=== PATIENT | male | born 1985 | race Caucasian/White ===

== ENCOUNTER → 2017-05-29 14:40 | Outpatient (REF) | payer OTHER, SELFPAY ==
[2017-05-29 19:03] LABS: Basophils # 0.1 K/mm3 (0-0.2); Basophils % 1.1 % (0.1-2.0); Eosinophils # 0.3 K/mm3 (0.0-0.4); Eosinophils % 4.3 % (0.1-12.0); Hematocrit 48.2 % (42.0-52.0); Hemoglobin 15.8 g/dL (14.1-18.0); Lymphocytes # 1.8 K/mm3 (0.7-4.5); Mean Corpuscular HGB Conc 32.7 g/dL (31.8-35.4); Mean Corpuscular Hemoglobin 28.3 pg (27.0-31.2); Mean Corpuscular Volume 86.6 fl (80-94); Mean Platelet Volume 8.8 fl (7.4-10.4); Monocytes # 0.5 K/mm3 (0.1-1.0); Monocytes % 6.5 % (1.7-9.3); Neutrophils # 4.6 K/mm3 (1.8-7.8); Neutrophils % 63.1 % (37.0-80.0); Platelet Count 229 K/mm3 (142-424); Red Blood Count 5.56 M/mm3 (4.60-6.20); Red Cell Distribution Width 12.6 % (11.5-17.5); White Blood Count 7.2 K/mm3 (4.8-10.8)
[2017-05-29 19:08] LABS: Alanine Aminotransferase 100 U/L (12-78); Albumin/Globulin Ratio 1.1 (1.1-1.8); Alkaline Phosphatase 101 U/L (46-116); Aspartate Amino Transferase 51 U/L (15-37); Bilirubin,Total 0.3 mg/dL (0.2-1.0); Blood Urea Nitrogen 16 mg/dL (7-18); Carbon Dioxide 30 mmol/L (21.0-32.0); Chloride 104 mmol/L (98-107); Chol/HDL Ratio 3.6 (1-3.5); Cholesterol 208 mg/dL (140-200); Creatinine,Serum 0.81 mg/dL (0.70-1.30); Estimated Glomerular Filt Rate 110 ml/min (>60); Free T4 (Free Thyroxine) 0.88 ng/dl (0.76-1.46); GFR (African American) 134 ML/MIN (>60); Globulin 3.8 gm/dl (1.3-3.2); Glucose 81 mg/dL (74-106); HDL Cholesterol 57 mg/dL (27-67); LDL Cholesterol 116 mg/dL (0-130); Sodium 143 mmol/L (136-145); Thyroid Stimulating Hormone 1.24 uIU/ml (0.358-3.740); Total Protein,Serum 7.8 gm/dL (6.4-8.2); Triglycerides 173 mg/dL (30-200); VLDL Cholesterol 35 mg/dL (0-40)
[2017-05-29 19:57] LABS: Hemoglobin A1C 5.5 % (0.0-7.0)
== END ==
LOC: LAB 14:40
PROVIDERS: Visit Provider Emergency Medicine
DX: R63.5 Abnormal weight gain (principal)
CPT/HCPCS: 80053; 80061; 83036; 84439; 84443; 85025

== ENCOUNTER → 2017-06-08 10:15 | Outpatient (CLI) | payer OTHER, SELFPAY ==
[2017-06-09 08:22] LABS: Hep A Ab, IgM Negative (Negative); Hepatitis B Core Antibody IgM Negative (Negative); Hepatitis B Surface Antigen Negative (Negative)
[2017-06-09 18:03] LABS: Hepatitis C Antibody <0.1 s/co ratio (0.0-0.9)
== END ==
PROVIDERS: Physician Assistant; Visit Provider Emergency Medicine
DX: R79.89 Other specified abnormal findings of blood chemistry (principal)
CPT/HCPCS: 36415; 80074

== ENCOUNTER → 2018-05-07 09:16 | Outpatient (POV) | payer OTHER, SELFPAY | PROVIDERS: Visit Provider Dermatology | DX: Z00.00 Encounter for general adult medical examination without abnormal findings (principal) ==

== ENCOUNTER → 2019-01-31 10:38 | Outpatient (CLI) | payer OTHER, SELFPAY ==
--- NOTE | 2019-01-31 10:44 | XR_ITS ---
PROCEDURE: XR FOOT WT BEARING RT 3V CLINICAL INDICATION: pain COMPARISON: No exams were available for comparison FINDINGS: No fracture or dislocation. No lytic or blastic change. There is normal mineralization. The joint spaces are well-preserved. No significant degenerative/arthritic changes. No erosive changes evident. Other findings:Borderline pes planus. There is an os trigonum IMPRESSION: Borderline pes planus otherwise negative Dictated by: Vin Hernandez MD 01/31/2019 15:09 Electronically signed by Vin Hernandez MD in [place] 01/31/2019 15:09
--- NOTE | 2019-01-31 10:44 | XR_ITS ---
PROCEDURE: XR FOOT WT BEARING LT 3V CLINICAL INDICATION: pain Narrowing COMPARISON: No exams were available for comparison FINDINGS: No fracture or dislocation. No lytic or blastic change. There is normal mineralization. There are minimal osteoarthritic changes of the 1st metatarsophalangeal joint. A well-circumscribed lucency is present at the base of the 5th metatarsal. This may represent either an old ununited fracture or accessory center of ossification. Please correlate with history. There is mild pes planus. Other findings:None. 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
--- NOTE | 2019-01-31 10:44 | XR_ITS ---
PROCEDURE: XR ANKLE WT BEARING RT MIN 3V CLINICAL INDICATION: pain COMPARISON: No exams were available for comparison FINDINGS: No fracture, dislocation, lytic change, or blastic change evident. No significant degenerative change IMPRESSION: No acute findings. Dictated by: Vin Hernandez MD 01/31/2019 15:09 Electronically signed by Vin Hernandez MD in [facility] 01/31/2019 15:09
--- NOTE | 2019-01-31 10:44 | XR_ITS ---
PROCEDURE: XR ANKLE WT BEARING LT MIN 3V CLINICAL INDICATION: pain COMPARISON: No exams were available for comparison FINDINGS: No fracture, dislocation, lytic change, or blastic change evident. No significant degenerative change. There is an os trigonum IMPRESSION: Negative left ankle Dictated by: Vin Hernandez MD 01/31/2019 15:08 Electronically signed by Vin Hernandez MD in [facility] 01/31/2019 15:08
== END ==
PROVIDERS: PCP Emergency Medicine; Visit Provider Podiatrist
DX: M79.672 Pain in left foot (principal); M79.671 Pain in right foot; M25.572 Pain in left ankle and joints of left foot; M25.571 Pain in right ankle and joints of right foot
CPT/HCPCS: 73610; 73630

== ENCOUNTER 2021-03-09 11:40 | Emergency (ER) | payer OTHER, SELFPAY ==
[2021-03-09] VITALS (12 sets, daily range): BP systolic 98–152; BP diastolic 64–90; PULSE 69–100; RESP 14–22; TEMP 36.6–36.8; O2SAT 93–97; BMI 43.3
--- NOTE | 2021-03-09 11:38 | ECG_ITS ---
APPROVED REPORT Exam: Resting ECG HR:84 bpm ECG Measurements Heart Rate 84 AXES ID 174 P 57 QRSd 98 QRS 33 QT 352 T 63 QTc 415 Conclusion Normal sinus rhythm Incomplete right bundle branch block Borderline ECG Electronically signed by : Prashant Barnes MD 03/11/2021 12:14:02
--- NOTE | 2021-03-09 11:43 | HMH.EDGENADL ---
ED Disposition Clinical Impression: Pneumonia due to COVID-19 virus Disposition: Home, Self-Care Condition on Discharge: Fair Instructions: DI for COVID-19 (Suspected or Confirmed ) Additional Instructions: Return to the emergency department if shortness of breath develops. COVID-19 Isolation: Isolate yourself for a MINIMUM of 10 days from onset of symptoms: What to do: Monitor your symptoms. If you have an emergency warning sign (including trouble breathing), seek emergency medical care immediately. Stay in a separate room from other household members, if possible. Use a separate bathroom, if possible. Avoid contact with other members of the household and pets. Don?t share personal household items, like cups, towels, and utensils. Wear a mask when around other people if able. You can be around others AFTER: 10 days since symptoms first appeared AND 24 hours with no fever without the use of fever-reducing medications AND Other symptoms of COVID-19 are improving Referrals: Provider,Referral, [Referring] - - Critical Care Critical Care Time: No Attestation: On , the high probability of a clinically significant, sudden or life threatening deterioration of the following system(s) required my full and direct attention, intervention and personal management. The time I documented below is in addition to time spent performing reported procedures but includes the following listed in this critical care notation. Medical Decision Making - Mike Inquiry Pt receiving controlled substance: No Vital Signs: 03/09/21 11:54 Temperature 98.2 F Temperature Source Oral Pulse Rate [Left Radial] 87 Respiratory Rate 20 Blood Pressure [Right Arm] 152/90 H Blood Pressure Mean [Right Arm] 110 Blood Pressure Source [Right Arm] Automatic Cuff Blood Pressure Position [Right Arm] Sitting 02 Sat by Pulse Oximetry 97 Oxygen Delivery Method Room Air - Lab Data Lab Results 03/09/21 11:40: WBC 6.2, RBC 5.80, Hgb 17.3, Hct 51.3, MCV 88.5, MCH 29.8, MCHC 33.6, RDW 13.0, Plt Count 229, MPV 9.2, Neut % (Auto) 62.4, Lymph % (Auto) 26.1, Sterling % (Auto) 9.0, Eos % (Auto) 1.5, Baso % (Auto) 1.1, Neut # (Auto) 3.9, Lymph # (Auto) 1.6, Sterling # (Auto) 0.6, Eos # (Auto) 0.1, Baso # (Auto) 0.1 03/09/21 11:40: Sodium 141, Potassium 3.9, Chloride 106, Carbon Dioxide 28, Anion Gap 10.9, BUN 14, Creatinine 0.80, Estimated Creat Clear 124, Estimated GFR 109, Est GFR ( Amer) 132, Glucose 83, Calcium 9.1, Troponin I < 0.01 03/09/21 11:40: SARS-CoV-2 (PCR) Detected A, Influenza A Untype (PCR) Not detected, Influenza Type B (PCR) Not detected 03/09/21 11:40: D-Dimer 1.11 H Result diagrams: 03/09/21 11:40 03/09/21 11:40 Orders (Tests/Meds): ED MEDICATIONS Generic Name Dose Route Start Last Admin Trade Name Freq PRN Reason Stop Dose Admin Diphenhydramine HCl 25 mg 03/09/21 14:00 Diphenhydramine 50mg/Ml Vial IV 03/09/21 16:00 ONCE PRN INFUSION REACTION Hydrocortisone Sodium Succinate 100 mg 03/09/21 14:00 Hydrocortisone Sod Succinate 100mg Vial IV 03/09/21 16:00 ONCE PRN INFUSION REACTION Sodium Chloride 1,000 mls @ 100 mls/hr 03/09/21 14:00 Sod Chlor 0.9% 1000ml Bag IV 03/09/21 16:00 .Q10H PRN INFUSION REACTION Casirivimab/Imdevimab 10 ml/ 110 mls @ 220 mls/hr 03/09/21 14:00 Sodium Chloride IV 03/09/21 14:29 ONCE ONE Loratadine 10 mg 03/09/21 14:00 Loratadine 10mg Tablet PO 03/09/21 16:00 ONCE PRN INFUSION REACTION Discontinued Medications Generic Name Dose Route Start Last Admin Trade Name Freq PRN Reason Stop Dose Admin Iopamidol 70 ml 03/09/21 12:42 03/09/21 12:43 Iopamidol-370 (76%);100ml Bottle IV 03/09/21 12:43 70 ml ONCE ONE Administration Sodium Chloride 40 ml 03/09/21 12:42 03/09/21 12:43 0.9 % Sodium Chloride 50 Ml Vial IV 03/09/21 12:43 40 ml ONCE ONE Administration Sodium Chloride 10 ml 03/09
--- NOTE | 2021-03-09 11:50 | XR_ITS ---
PROCEDURE: XR CHEST 2V CLINICAL HISTORY: cough/chest pain COMPARISON: No exams were available for comparison FINDINGS: The cardiomediastinal silhouette and pulmonary vascularity are within normal limits. There is some increased density in the right CP angle felt to be related to summation artifact. On the lateral view however there is a 2 cm area of increased density overlying the T7 vertebral body posteriorly and inferiorly which may be related to a sclerotic lesion of T7. There are mild degenerative changes in the thoracic spine. No previous study is available for comparison.. No acute bony abnormalities. IMPRESSION: Possible sclerotic lesion of T7 versus overlying pulmonary nodule. Consider unenhanced chest CT for further evaluation Dictated by: Vin Hernandez MD 03/09/2021 12:36 Vin Hernandez MD in [place] 03/09/2021 12:36
[2021-03-09 12:03] LABS: Basophils # 0.1 K/mm3 (0-0.2); Basophils % 1.1 % (0.1-2.0); Eosinophils # 0.1 K/mm3 (0.0-0.4); Eosinophils % 1.5 % (0.1-12.0); Hematocrit 51.3 % (42.0-52.0); Hemoglobin 17.3 g/dL (14.1-18.0); Lymphocytes # 1.6 K/mm3 (0.7-4.5); Lymphocytes % 26.1 % (10-50); Mean Corpuscular HGB Conc 33.6 g/dL (31.8-35.4); Mean Corpuscular Hemoglobin 29.8 pg (27.0-31.2); Mean Corpuscular Volume 88.5 fl (80-94); Mean Platelet Volume 9.2 fl (7.4-10.4); Monocytes # 0.6 K/mm3 (0.1-1.0); Neutrophils # 3.9 K/mm3 (1.8-7.8); Neutrophils % 62.4 % (37.0-80.0); Platelet Count 229 K/mm3 (142-424); White Blood Count 6.2 K/mm3 (4.8-10.8)
[2021-03-09 12:08] LABS: Blood Urea Nitrogen 14 mg/dl (9-20); Calcium 9.1 mg/dl (8.4-10.2); Chloride 106 mmol/L (98-107); Creatinine Clearance Estimated 124 mL/min (50-200); Estimated Glomerular Filt Rate 109 ml/min (>60); GFR (African American) 132 ML/MIN (>60); Glucose 83 mg/dl (74-100); Potassium 3.9 mmoL/L (3.5-5.1); Sodium 141 mmol/L (136-145)
[2021-03-09 12:11] LABS: Influenza A, PCR Not Detected (NotDetected); Influenza B, PCR Not Detected (NotDetected)
[2021-03-09 12:13] LABS: D-Dimer 1.11 ug/mL (0.0-0.5)
[2021-03-09 12:21] LABS: Troponin I < 0.01 ng/ml (0.00-0.034)
--- NOTE | 2021-03-09 12:22 | CT_ITS ---
PROCEDURE: CT ANGIO CHEST PE PROTOCOL CLINCIAL INDICATION: cp, elev d-dimer The COMPARISON: CR XR CHEST 2V from 03/09/2021 TECHNIQUE: IV Contrast: 70ML Isovue 370 Axial images obtained with sagittal and coronal reformats. All CT scans at the facility use one or more dose reduction, viz: automated exposure control, ma/kV adjustment per patient size (including targeted exams where dose is matched to indication, i.e. head), or iterative reconstruction technique. FINDINGS: HEART AND MEDIASTINAL STRUCTURES: No evidence of pulmonary embolus, aortic aneurysm, or aortic dissection. There are some mildly prominent mediastinal lymph nodes in the subcarinal region measuring 3 by 1.6 cm. LUNGS AND PLEURAL SPACES: Multifocal bilateral ground-glass opacities are present suspicious for Covid19 pneumonia. That history however is not available for confirmation. In the right lower lobe medially there is a 1.6 x 1.4 cm pulmonary nodular opacity. This is more dense than the other described areas of ground-glass attenuation. This could represent a rounded area of pneumonia or pulmonary nodule. This corresponds to the radiographic abnormality. No effusions. BONY STRUCTURES: Degenerative changes thoracic spine UPPER ABDOMEN: Fatty liver ADDITIONAL FINDINGS: No other significant abnormalities. IMPRESSION: No evidence of pulmonary embolus, aortic aneurysm, or aortic dissection. Multifocal ground-glass opacities in lower lungs bilaterally suggesting atypical pneumonia. Please correlate with clinical parameters. 1.6 cm nodular opacity right lower lobe medially which could represent a rounded area of pneumonia or pulmonary nodule for which follow-up is suggested. There is mild mediastinal adenopathy in the subcarinal region. Dictated by: Vin Hernandez MD 03/09/2021 12:57 Vin Hernandez MD in [place] 03/09/2021 12:57
[2021-03-09 12:35] LABS: Anion Gap 10.9 mEq/L (5-15); Carbon Dioxide 28 mmol/L (22.0-30.0)
[2021-03-09 12:36] LABS: Coronavirus 19, PCR Detected (NotDetected)
== END 2021-03-09 17:00 | disposition home or self-care (01) ==
PROVIDERS: Emergency Provider Emergency Medicine; PCP Emergency Medicine
DX: U07.1 COVID-19 (principal); J12.82 Pneumonia due to coronavirus disease 2019; E78.5 Hyperlipidemia, unspecified; K21.9 Gastro-esophageal reflux disease without esophagitis; J45.909 Unspecified asthma, uncomplicated
CPT/HCPCS: 71046; 71275; 80048; 84484; 85025; 85378; 93005; 96365; 96367; 99283; C9803; Q9967; U0003; U0005

== ENCOUNTER → 2021-08-30 09:25 | Outpatient (CLI) | payer OTHER, SELFPAY ==
--- NOTE | 2021-08-30 09:28 | CT_ITS ---
FINAL REPORT CLINICAL HISTORY: umbillical hernia COMPARISON: CTA chest March 09, 2021 FINDINGS: Axial CT images of the abdomen and pelvis were obtained without intravenous contrast. Coronal reformatted images were also obtained.This study was performed with techniques to keep radiation doses as low as reasonably achievable (ALARA). Individualized dose reduction techniques using automated exposure control or adjustment of mA and/or kV according to the patient's size were employed. Abdomen: There is a 17 mm lobular nodule in the right lower lobe stable in size and appearance. There are small calcifications within the nodule. This is nonspecific. There is no evidence of renal stone or hydronephrosis. There is mild fatty infiltration of the liver. The spleen and pancreas have an unremarkable, unenhanced appearance. There is a fat containing umbilical hernia. The hernia orifice measures 18 mm transverse and the hernia sac measures 27 mm transverse. There is stranding of the fat within the hernia and just deep to it. Pelvis: Images of the pelvis reveal no evidence of ureteral dilation or ureteral stone. The appendix is normal. There are small bilateral inguinal hernias containing fat. IMPRESSION: Fat containing umbilical hernia with stranding of the of the fat within the hernia and just deep to it that may be inflammatory or edema. Stable , nonspecific 17 mm right lower lobe nodule. This could be further evaluated with additional follow-up CT in 6 months. Reviewed, Interpreted and Dictated by Rahul Baker III, MD Transcribed by Filemon Eubanks Authenticated by Rahul Baker III, MD on 08/30/2021 11:12:12 AM [facility]
== END ==
PROVIDERS: PCP Nurse Practitioner Family; Visit Provider Nurse Practitioner Family
DX: K42.9 Umbilical hernia without obstruction or gangrene (principal)
CPT/HCPCS: 74176

== ENCOUNTER → 2021-09-20 07:50 | Outpatient (CLI) | payer OTHER, SELFPAY ==
[2021-09-20 07:58] LABS: MANUAL DIFFERENTIAL MANUAL DIFFERENTIAL (MANUAL DIFF); Microscopic, Urine URINE MICROSCOPIC (MICROSCOPIC)
[2021-09-20 08:08] LABS: Appearance,Urine CLEAR (Clear); Bilirubin,Urine Negative (Negative); Blood, Urine Negative (Negative); Color,Urine YELLOW (Yellow); Glucose,Urine (UA) Negative (Negative); Ketones,Urine Negative (Negative); Leukocyte Esterase,Urine Negative (Negative); Nitrate,Urine Negative (Negative); Protein,Urine Negative (Negative); Specific Gravity, Urine >= 1.030 (1.005-1.030); Urobilinogen,Urine 0.2 EU/dl (0.2)
[2021-09-20 08:13] LABS: Basophils # 0.1 K/mm3 (0-0.2); Basophils % 1.8 % (0.1-2.0); Eosinophils # 0.3 K/mm3 (0.0-0.4); Eosinophils % 4.1 % (0.1-12.0); Hematocrit 50.7 % (42.0-52.0); Hemoglobin 17.3 g/dL (14.1-18.0); Lymphocytes # 2.5 K/mm3 (0.7-4.5); Lymphocytes % 33.8 % (10-50); Mean Corpuscular Hemoglobin 29.6 pg (27.0-31.2); Mean Corpuscular Volume 86.9 fl (80-94); Mean Platelet Volume 8.5 fl (7.4-10.4); Monocytes # 0.6 K/mm3 (0.1-1.0); Monocytes % 7.4 % (1.7-9.3); Neutrophils # 3.9 K/mm3 (1.8-7.8); Neutrophils % 52.8 % (37.0-80.0); Platelet Count 205 K/mm3 (142-424); Red Blood Count 5.84 M/mm3 (4.60-6.20); Red Cell Distribution Width 13.4 % (11.5-17.5); White Blood Count 7.4 K/mm3 (4.8-10.8)
[2021-09-20 08:19] LABS: Bacteria,Urine Trace /lpf; RBC,Urine Occasional #/hpf (0-3); Squamous Epithelial Cell,Urine Occasional #/hpf (0-5); WBC,Urine Occasional #/hpf (0-3)
[2021-09-20 08:37] LABS: Eosinophils % 3 % (0-3); Lymphocytes % 42 % (10-50); Monocytes % 4 % (2-9); Neutrophils % 51 % (42-76); Total Cells Counted 100
[2021-09-20 08:39] LABS: Platelet Estimate Normal; Spherocytes 2+
[2021-09-20 08:40] LABS: Burr Cells 1+
[2021-09-20 09:38] LABS: Chloride 103 mmol/L (98-107); Potassium 4.6 mmoL/L (3.5-5.1); Sodium 140 mmol/L (136-145)
[2021-09-20 09:41] LABS: Anion Gap 11.6 mEq/L (5-15); Blood Urea Nitrogen 14 mg/dl (9-20); Calcium 9.5 mg/dl (8.4-10.2); Carbon Dioxide 30 mmol/L (22.0-30.0); Estimated Glomerular Filt Rate 95 ml/min (>60); GFR (African American) 115 ML/MIN (>60); Glucose 101 mg/dl (74-100)
== END ==
PROVIDERS: PCP Emergency Medicine; Visit Provider Surgery
DX: Z01.812 Encounter for preprocedural laboratory examination (principal); Z20.822 Contact with and (suspected) exposure to COVID-19; K42.9 Umbilical hernia without obstruction or gangrene
CPT/HCPCS: 36415; 80048; 81001; 85007; 85014; 85018; 85048; 85049; C9803; U0003; U0005

== ENCOUNTER 2021-09-22 06:02 | Day surgery (SDC) | payer OTHER, SELFPAY ==
[2021-09-20 10:13] VITALS: BMI 43.3
[2021-09-22] VITALS (9 sets, daily range): BP systolic 121–146; BP diastolic 69–102; PULSE 66–98; RESP 12–18; TEMP 36.2–36.4; O2SAT 94–98
--- NOTE | 2021-09-22 08:02 | HMH.ANESCL ---
[facility] Anesthesia Checklist - Patient Identification Patient Identification: Arm Band - Structural Data Admitted From: Home Planned Operative Procedure/s: Umbilical hernia repair Consent for Planned Operative Procedure(s) Verified: Yes - NPO Status Verified Time NPO: 00:00 - Additional verifications Anesthesia Reactions: No Hx Blood Transfusions: No Blood Transfusion Reaction: No - Airway Assessment C-Spine Mobility Assessed: Yes TMJ Mobility Assessed: Yes Dentition: Good Dentition - Neurological Assessment Level of Consciousness: Awake Hx Seizures: No Numbness or tingling in extremities: No - Anesthesia Plan Anesthesia Risk discussed: Yes Anesthesia Plan: Verified ASA Class: II Anesthesia Type: General [facility] History I have reviewed the patient's past medical history: Yes Medical History: Reports:: Asthma, Gastroesophageal Reflux Disease(GERD) Denies:: Cancer, Diabetes Mellitus Type 1, Diabetes Mellitus Type 2, Internal Pacemaker, MRSA, Seizures *Have you ever received a pneumonia vaccine?: No *Have you received a flu vaccine this season?: No Other Medical History: Denies: Blood Transfusion Reaction Anesthesia experience/problems:: None Other Surgeries: Yes: Other. No: Pacemaker Amputation: No Fractures: Yes - *Social History Last grade of school completed: High school graduate Smoking Status: Current every day smoker Tobacco Type: cigarettes, cigars # Packs/Day (cigarettes): 1 Alcohol Intake: current Alcohol Intake Frequency:: holidays/special occasions only Substance Use Type: denies use *Occupational Status:: employed Housing: house Household Members: family *Travel in the last 8 weeks: None Family Hx:: Diabetes, Heart Attack, Hypertension, Stroke
--- NOTE | 2021-09-22 08:14 | P.OP_ITS ---
Date of procedure: 09/22/21 Pre-op Diagnosis:: Umbilical hernia with chronically-incarcerated preperitoneal fat versus omentum Post-op Diagnosis:: Umbilical hernia with chronically-incarcerated omentum Procedure performed:: Open umbilical hernia repair (primary repair without mesh) Surgeon:: Wesley Varela MD Anesthesia: MAC Estimated blood loss (mL): 10 Operative findings:: 1 cm defect Chronically-incarcerated omentum with projection to the skin margin Operative note:: After informed consent was obtained the patient was taken to the operating room was placed in the supine position. General anesthesia with laryngeal mask airway was achieved. His abdomen was prepped and draped in a sterile fashion. After infiltration local anesthetic a curvilinear infraumbilical incision was made. The deep subcutaneous tissue was dissected with a combination of scalpel, electrocautery, and blunt dissection. Chronically-incarcerated omentum project ing to the underlying skin margin was encountered. This was carefully dissected free to include a small margin of skin that was incorporated into the hernia sac. Dissection along the fascial margin was completed. A 1 cm defect was noted. The omentum was carefully returned to the abdominal cavity (with the exception of a small transected margin). 0 Ethibond was then used to close the defect primarily. The umbilical stump was reapproximated with 2-0 Vicryl. Skin was then closed with 4-0 Monocryl in a mattress fashion to facilitate hemostasis. Dressings were applied and the patient was transferred to recovery in stable condition. Condition: stable Disposition: PACU Specimens:: None Complications:: no immediate
--- NOTE | 2021-09-22 08:23 | HMH.ANESI ---
[facility] Anesthesia Record Part I Intake, IV Amount: 700 Estimated blood loss (mL): 5 Urine output (mL): 0 Blood Pressure: 142/102 SaO2: 94 Pulse Rate: 84 Respiratory Rate: 12 Temperature: 97.2 F Patient is:: Drowsy Stable to PACU at:: 08:20
--- NOTE | 2021-09-23 07:45 | P.PN_ITS ---
[facility] Anesthesia Record Part II Discharge Time: 08:50 Destination: Home PACU nurse assessment reviewed?: Yes Patient Condition:: Good Anesthesia Complications:: None Swallowing reflex intact?: Yes Cyanosis?: No Blood Pressure: 136/84 Pulse Rate: 72 Temperature: 97.5 F Mental Status: Alert & Oriented Pain level:: 2 Nausea and/or vomitting:: None Intake, IV Amount: 0
[2021-09-23 07:46] VITALS: BP 136/84; PULSE 72; TEMP 36.4
[2021-09-23 09:30] VITALS: BP 142/82; PULSE 73; RESP 16; TEMP 36.4; O2SAT 94
== END 2021-09-22 09:30 ==
LOC: OR 06:03
PROVIDERS: PCP Nurse Practitioner Family; Visit Provider Surgery
PROC: (CPT 49587; principal; 2021-09-22 07:30)
DX: K42.0 Umbilical hernia with obstruction, without gangrene (principal); K21.9 Gastro-esophageal reflux disease without esophagitis
CPT/HCPCS: 49587; 96374; J2405; J2710

== ENCOUNTER → 2022-01-31 11:30 | Outpatient (CLI) | payer OTHER, SELFPAY ==
[2022-01-31 13:09] LABS: Coronavirus 19, PCR Not Detected (NotDetected); Influenza A, PCR Not Detected (NotDetected); Influenza B, PCR Not Detected (NotDetected)
== END ==
PROVIDERS: PCP Student in an Organized Health Care Education/Training Program; Visit Provider Student in an Organized Health Care Education/Training Program
DX: J32.9 Chronic sinusitis, unspecified (principal); Z20.822 Contact with and (suspected) exposure to COVID-19
CPT/HCPCS: C9803; U0003; U0005

== ENCOUNTER 2022-10-29 09:33 | Emergency (ER) | payer OTHER, SELFPAY ==
[2022-10-29 09:34] VITALS: BP 126/76; PULSE 62; RESP 18; TEMP 36.9; O2SAT 97; BMI 41.0
--- NOTE | 2022-10-29 09:36 | EXP.UTC ---
Discharge Plan Disposition Patient Disposition: Home, Self-Care Condition: Good Prescriptions Prescriptions: New benzonatate [benzonatate] 100 mg capsule 100 mg PO TIDP PRN (Reason: Cough) Qty: 30 0RF methylprednisolone 4 mg Tablets,Dose Pack 4 mg PO DIRECTED Qty: 21 0RF amoxicillin-pot clavulanate 875-125 mg Tablet 1 tab PO Q12H Qty: 20 0RF guaifenesin [Mucinex] 600 mg tablet extended release 12hr 600 - 1,200 mg PO BIDP PRN (Reason: Congestion) Qty: 30 0RF No Action omeprazole 40 mg capsule,delayed release(DR/EC) 40 mg PO DAILY Qty: 90 3RF ogumaygqxjjmnaa-gqbjrwsom-BO [Bromfed DM] 2-30-10 mg/5 mL syrup 10 ml PO Q4-6H PRN (Reason: cough) 7 Days Qty: 200 0RF amoxicillin-pot clavulanate 875-125 mg tablet 1 tab PO BID 7 Days Qty: 14 0RF Referrals Follow up/Referrals: Shira Smith PA [Primary Care Provider] - See instructions Activity Restrictions/Add. Instructions Additional Instructions/Restrictions: Drink plenty of fluids. Take tylenol or ibuprofen for pain or fever. Take the medications as directed. Follow up with your regular doctor. GO TO THE ER FOR ANY WORSENING SYMPTOMS Throw your tooth brush away and get a new one. Quarantine until you know the results of your covid-19 test. Notify your school or workplace of your results and follow their instructions regarding return to work/school. Clinical Impressions Clinical Impression: Acute bronchitis Instructions Patient Instructions: Acute Bronchitis, DI for Acute Bronchitis Discharge ED Provider: Osmin Cruz [facility] General Stated complaint: cough Time Seen by Provider: 10/29/22 09:37 History of Present Illness Provider Complaint: He states that for the past 5 days he has had chest and sinus congestion. He has been coughing up yellowish sputum. Related Data Previous Rx's Medication Instructions Recorded amoxicillin 875 mg-potassium 1 tab PO BID 7 days #14 tabs 01/31/22 clavulanate 125 mg tablet owkuzgmnawctmmp-vccgxyixxgrzbbj-LG 10 ml PO Q4-6H PRN cough 7 days 01/31/22 2 mg-30 mg-10 mg/5 mL oral syrup #200 mL (Bromfed DM) omeprazole 40 mg capsule,delayed 40 mg PO DAILY gerd #90 caps 01/31/22 release amoxicillin 875 mg-potassium 1 tab PO Q12H #20 tabs 10/29/22 clavulanate 125 mg tablet benzonatate 100 mg capsule 100 mg PO TIDP PRN Cough #30 caps 10/29/22 guaifenesin 600 mg tablet, 600 - 1,200 mg PO BIDP PRN 10/29/22 extended release 12 hr (Mucinex) Congestion #30 tabs methylprednisolone 4 mg tablets in 4 mg PO DIRECTED #21 tabs 10/29/22 a dose pack Allergies Allergy/AdvReac Type Severity Reaction Status Date / Time acetaminophen [From Percocet] Allergy Mild Rash Verified 01/31/22 11:10 erythromycin base Allergy Mild Rash Verified 01/31/22 11:10 oxycodone [From Percocet] Allergy Mild Rash Verified 01/31/22 11:10 PFS PFS Disclaimer: The information contained in this section may have been updated after the patient was seen, as this information can be updated by other users. Medical History Hyperlipidemia (~05/30/17) Surgical History Hx of umbilical hernia repair Social History Smoking Status: Current every day smoker tobacco type: cigarettes packs per day: 1 and cigars second hand exposure: No alcohol intake: current substance use type: denies use current occupational status: employed Travel in the last 8 weeks: None household members: family housing: house current occupation: self current occupational exposures/hazards: No caffeine: Yes ROS Obtained: Yes All systems reviewed & no additional complaints except as documented Constitutional Constitutional: Reports poor appetite Eyes Eyes: Reports system reviewed and no additional complaints, except as documented ENT Ears,
[2022-10-29 10:16] VITALS: BP 126/76; PULSE 62; RESP 18; TEMP 36.9; O2SAT 97
== END 2022-10-29 10:17 | disposition home or self-care (01) ==
PROVIDERS: Emergency Provider Nurse Practitioner Family; PCP Physician Assistant
DX: J20.9 Acute bronchitis, unspecified (principal); F17.210 Nicotine dependence, cigarettes, uncomplicated; E78.5 Hyperlipidemia, unspecified
CPT/HCPCS: 99204; 99212; G0463

== ENCOUNTER 2023-06-08 08:05 | Outpatient (CLI) | payer OTHER, SELFPAY ==
--- NOTE | 2023-06-08 08:15 | XR_ITS ---
FINAL REPORT CLINICAL HISTORY: neck/shoulder/back pain FINDINGS: RIGHT SHOULDER Three views demonstrate no acute fracture or dislocation. The visualized joint spaces are normally aligned. The soft tissues are unremarkable. IMPRESSION: No acute process. Reviewed, Interpreted and Dictated by Vignesh Herndon MD Transcribed by Cristal Daniel Authenticated and [facility]
--- NOTE | 2023-06-08 08:15 | XR_ITS ---
FINAL REPORT CLINICAL HISTORY: Neck/shoulder/back pain FINDINGS: CERVICAL SPINE SERIES Three views demonstrate no acute fracture. The disc spaces are well preserved. The vertebral body demonstrates normal height.. There is reversal of cervical lordosis. Alignment is otherwise normal. IMPRESSION: No acute process. Reviewed, Interpreted and Dictated by Vignesh Herndon MD Transcribed by Cristal Daniel Authenticated and [facility]
== END 2023-06-08 23:59 ==
LOC: RAD 08:07
PROVIDERS: PCP Physician Assistant; Visit Provider Internal Medicine
DX: M25.511 Pain in right shoulder (principal); M54.2 Cervicalgia
CPT/HCPCS: 72040; 73030

== ENCOUNTER 2023-07-26 15:10 | Outpatient (CLI) | payer OTHER, SELFPAY ==
--- NOTE | 2023-07-26 15:14 | MR_ITS ---
FINAL REPORT CLINICAL HISTORY: Cervical Spine Pain FINDINGS: Multiplanar MR imaging of the cervical spine was performed without contrast. There is motion artifact on many sequences. On the sagittal T2-weighted images, disc degeneration is seen throughout. There is no evidence of fracture. The vertebral alignment is normal. The cervical spinal cord has an unremarkable appearance without evidence of mass, edema or syrinx. The cervicomedullary junction is normal. C2-3: Annular disc bulge with uncovertebral osteophytes. There is mild right neuroforaminal narrowing. C3-4: Left foraminal disc protrusion with partially covering osteophyte. There is moderate left neuroforaminal narrowing. There is mild central canal stenosis with AP diameter of the thecal sac measuring 9 mm. C4-5: Annular disc bulge with uncovertebral osteophytes. There is moderate bilateral neuroforaminal narrowing. C5-6: Disc osteophyte complex with right foraminal extruded disc. There is severe right neuroforaminal narrowing. There is mild central canal stenosis with AP diameter thecal sac measuring 9 mm. C6-7: Disc osteophyte complex with severe right and moderate left neuroforaminal narrowing. C7-T1: Uncovertebral osteophytes with mild right neuroforaminal narrowing. IMPRESSION: Multilevel degenerative disc disease with mild central canal stenosis at C3-4 and C5-6. Reviewed, Interpreted and Dictated by Rahul Baker III, MD Transcribed by Cristal Daniel Authenticated and [facility]
--- NOTE | 2023-07-26 15:14 | MR_ITS ---
FINAL REPORT CLINICAL HISTORY: Rt Shoulder Pain FINDINGS: Multiplanar MR imaging of the right shoulder was performed without contrast.There is motion artifact on many sequences. There is an intrasubstance tear at the distal infraspinatus tendon measuring approximately 50%. Supraspinatus tendon is intact. There is mild AC joint arthrosis. A small amount of fluid is seen in the subacromial/subdeltoid bursa. The glenoid labrum is intact. The long head of the biceps tendon is intact. A small glenohumeral joint effusion is seen. There is no evidence of fracture or dislocation. The musculature is intact. There is no evidence of soft tissue mass. IMPRESSION: Intrasubstance tear of the distal infraspinatus tendon measuring approximately 50%. Mild AC joint arthrosis with subacromial/subdeltoid bursitis. Small glenohumeral joint effusion. Reviewed, Interpreted and Dictated by Rahul Baker III, MD Transcribed by Cristal Daniel Authenticated and [facility]
== END 2023-07-26 23:59 | disposition home or self-care (01) ==
LOC: RAD 15:10
PROVIDERS: PCP Physician Assistant; Visit Provider Orthopaedic Surgery
DX: M54.2 Cervicalgia (principal); M25.511 Pain in right shoulder
CPT/HCPCS: 72141; 73221; 76376

== ENCOUNTER 2025-03-25 07:33 | Day surgery (SDC) | payer OTHER, SELFPAY ==
--- NOTE | 2025-03-17 12:08 | EXP.HP ---
History of Present Illness *Admission Date: 03/25/25 *History of present illness: Mr. Berger is a 39-year-old gentleman who is here for diagnostic colonoscopy. He has struggled with bright red rectal bleeding and some anorectal pain for years. He also has bowel irregularity with alternating constipation and diarrhea. The constipation is worse. He is not on any fiber regimen. He was told to take Metamucil but has been reluctant to do this. He has had an umbilical hernia repair (Wesley Varela M.D.). He does have a lot of gassiness and bloating. He does have infrequent lower abdominal discomfort and pain. He reports no weight loss. He does have obstipation with incomplete defecation and reports longer periods of time on the commode and excessive wiping. He does feel 1 hemorrhoid tag. He feels the blood is coming from the crevice. He reports no weight loss or family history of colon cancer. He was recently placed on metformin because of his prediabetes. He has never had a colonoscopy. The examination is deemed medically necessary for diagnostic colonoscopy. The patient has been seen, interviewed and examined prior to the procedure by both myself and the anesthesia provider. [facility] Disclaimer: The information contained in this section may have been updated after the patient was seen, as this information can be updated by other users. Medical History Sinusitis Hyperlipidemia (~05/30/17) Surgical History Hx of umbilical hernia repair Family History (Updated 03/25/25 @ 08:06 by Judy Paulson RN) Other No significant family history Social History (Updated 03/25/25 @ 08:04 by Judy Paulson RN) Smoking Status: Current every day smoker tobacco type: cigarettes packs per day: 1 and cigars second hand exposure: No alcohol intake: current alcohol intake frequency: holidays/special occasions only substance use type: denies use current occupational status: employed Travel in the last 8 weeks?: None household members: family housing: house current occupation: self current occupational exposures/hazards: No caffeine: Yes Have you lived/traveled outside [place] in past 30 days?: No Contact w/someone who lives/traveled outside US past 30 days?: No Exposure to someone with infectious disease in past 14 days?: No Do you have a fever (greater than 100.4 F or 38 C)?: No Have you tested positive for COVID-19?: No Exposed to someone with COVID-19 in past 14 days?: No Do you have a sore throat?: No Do you have a cough?: No Do you have any weakness?: No Are you experiencing any nausea/vomitting?: No Do you have any diarrhea?: No Are you experiencing any unusual bleeding?: No Do you have any muscle aches/pain?: No Do you have any abdominal pain?: No Are you experiencing loss of taste or smell?: No Other Medical History Have you received the Flu Vaccine for this season: No Have you received the Pneumonia Vaccine: No Review of Systems Review of Systems Review of systems (narrative): Negative *Cardiovascular Comments: Negative *Gastrointestinal Comments: Negative *Genitourinary Comments: Negative *Musculoskeletal Comments: Negative *Neurologic Comments: Negative Meds Home Medications and Allergies Home Medications ?Medication ?Instructions ?Recorded ?Confirmed ?Type omeprazole 40 mg capsule,delayed 40 mg PO DAILY gerd #90 caps 02/08/23 03/25/25 Rx release albuterol sulfate 90 mcg/actuation 2 puff inhalation Q6H PRN 12/01/24 03/25/25 Rx aerosol inhaler shortness of breath or wheezing #8.5 grams aspirin 81 mg tablet 81 mg PO DAILY 01/13/25 03/25/25 History metformin 500 mg tablet 500 mg PO DAILY 01/13/25 03/25/25 History nitroglycerin 0.4 % (w/w) rectal 1 inch HI BID #30 grams 01/13/25 03/25/25 Rx ointment sodium,potassium,mag sulfates 17.5 See Rx Instructions PO .COMPLEX 03/05/25 03/25/25 Rx gram-3.13 gram-1.6 gram oral soln #354 mL (Suprep Bowel Prep Kit) New Prescriptions to Start Prescriptions: Allergies Allergy/AdvReac Type Severity Reaction Status Date / Time acetaminophen (From Percocet) Allergy Mild Rash Verified 03/25/25 07:59 erythromycin base Allergy Mild Rash Verified 03/25/25 07:59 oxycodone (From Percocet) Allergy Mild Rash Verified 03/25/25 07:59 Exam *Routine HEENT Exam Head: Present normocephalic Eye: Present EOMI and PERRL ENT: Present mucous membranes moist *Routine Neck Exam Neck: Present supple *Routine Respiratory Exam Respiratory: Present CTA bilaterally *Routine Cardiovascular Exam Cardiovascular: Present RRR *Routine Abdominal Exam Abdominal: Present soft and normoactive bowel sounds; Absent tenderness *Routine Rectal Exam Rectal:: deferred *Routine Genitalia Exam Genitalia:: deferred *Routine Extremities Exam Extremities: Absent cyanosis, clubbing or edema *Routine Skin Exam Skin: Present warm; Absent rash *Routine Neurological Exam Neurological: Present alert and oriented X3 Assessment and Plan *Assessment and plan (1) Rectal bleeding: Status: Acute Category: Medical Code(s): K62.5 - Hemorrhage of anus and rectum (2) Anorectal pain: Status: Acute Category: Medical Code(s): K62.89 - Other specified diseases of anus and rectum (3) Chronic anal fissure: Status: Acute Category: Medical Code(s): K60.1 - Chronic anal fissure (4) Hemorrhoids: Status: Acute Category: Medical Code(s): K64.9 - Unspecified hemorrhoids (5) Irritable bowel syndrome with mixed bowel habits: Status: Acute Category: Medical Code(s): K58.2 - Mixed irritable bowel syndrome (6) Gassiness: Status: Acute Category: Medical Code(s): R14.0 - Abdominal distension (gaseous) (7) Alternating constipation and diarrhea: Status: Acute Category: Medical Code(s): R19.8 - Other specified symptoms and signs involving the digestive system and abdomen (8) Intermittent lower abdominal pain: Status: Acute Category: Medical Code(s): R10.30 - Lower abdominal pain, unspecified Plan A/P: 1. Anorectal bleeding and anorectal pain with mixed IBS, gassiness and infrequent lower abdominal discomfort and pain is the preprocedural diagnosis. The patient has never had a colonoscopy. The patient will be anesthetized/sedated using MAC sedation. The patient has been seen and examined. Cardiac and lung assessment prior to the examination is stable. Proceed with planned diagnostic colonoscopy.
--- NOTE | 2025-03-25 06:16 | HMH.PROCNOTE ---
[facility] Procedure Note Date: 03/25/25 Time: 08:54 Procedure Note:: Colonoscopy Procedure Report: Colonoscopy with cold snare polypectomy, snare cautery and Endo Clip placement Endoscopist: Niko Raza II, MD Referring physician: Prashant Barnes M.D. Date of Procedure: March 25, 2025 Equipment: Olympus [id number] adult colonoscope Sedation: MAC sedation Indication: Mr. Berger is a 39-year-old gentleman who is here for diagnostic colonoscopy. He has struggled with bright red rectal bleeding and anorectal pain for years. He also has bowel irregularity with alternating constipation and diarrhea with constipation predominant IBS symptoms. He was initially reluctant to take fiber but he has initiated a fiber bowel regimen (combined MiraLAX plus Metamucil mixed together every morning). This has resulted in complete resolution of his anal fissure with resolution of the bleeding and anorectal pain. He has had less gassiness and bloating. He reports no abdominal pain and previously had some left lower pain. He reports no weight loss or family history of colon cancer. He has had an umbilical hernia repair (Wesley Varela M.D.). He was recently placed on metformin because of his prediabetes. He has never had a colonoscopy. The examination is deemed medically necessary for diagnostic colonoscopy. Procedure: Prior to the procedure, a history and physical exam was performed, and patient's medications and allergies were reviewed. The risks, benefits and alternatives of the sedation and procedure were discussed with the patient. All questions were answered and informed consent was obtained. The patient was brought to the procedure room. Patient identification and proposed procedure were verified by the physician and the nurse. The patient was placed in a left lateral decubitus position and the scope was passed under direct vision. Throughout the procedure, the patient's blood pressure, pulse, and oxygen saturations were monitored continuously. The colonoscopy was accomplished without difficulty. The patient tolerated the procedure well. Findings: On digital rectal examination there was normal to slightly increased rectal tone. There was a healing posterior midline anal fissure with an internal associated anal papilla. There was some mild hemorrhoidal prolapse. The colonoscope was introduced through the anal canal to the rectum and advanced to the cecum. The ileocecal valve and appendiceal orifice were identified. The scope was advanced a short distance into the ileum which appeared grossly normal. The scope was then withdrawn into the colon. There were 5 colon polyps (descending x 2 (3 and 5 mm), sigmoid x 2 (8 and 10 mm) and rectosigmoid x 1 (13 mm)). The smaller polyps were removed via cold snare polypectomy. The larger 10 and 13 mm polyps were removed via snare cautery and were pedunculated polyps. 3 endoclips were placed over the larger polypectomy sites (8, 10 and 13 mm polypectomy sites) to provide closure and hemostasis. The remaining cecum, ascending, transverse, descending, sigmoid and rectum were grossly normal. There were no mucosal abnormalities identified. Upon retroflexion within the rectum there were grade 2-3 internal hemorrhoids. The preparation was excellent throughout with Wever Preparation Score of 9. The cecal time was 15 minutes. Impression: 1. Colonic polyps x 5 2. Posterior midline anal fissure (healing) with associated hypertrophied anal papilla 3. Grade 2 to 3 internal hemorrhoids Plan: I will follow-up the polyp histology and recommend repeat screening/surveillance colonoscopy again in 3 years. I would encourage the fiber bowel regimen (combined MiraLAX plus Metamucil) on a long-term daily and maintenance basis.
[2025-03-25 08:03] VITALS: BP 176/111; PULSE 86; RESP 16; TEMP 36.1; O2SAT 96; BMI 41.0
[2025-03-25] MEDS: LACTATED RINGERS 1000ML 1,000 ML 50 ML IV (08:14)
--- NOTE | 2025-03-25 08:22 | EXP.ANES.CKL ---
[facility] Disclaimer: The information contained in this section may have been updated after the patient was seen, as this information can be updated by other users. Medical History Sinusitis Hyperlipidemia (~05/30/17) Surgical History Hx of umbilical hernia repair Family History (Updated 03/25/25 @ 08:06 by Judy Paulson RN) Other No significant family history Social History (Updated 03/25/25 @ 08:04 by Judy Paulson RN) Smoking Status: Current every day smoker tobacco type: cigarettes packs per day: 1 and cigars second hand exposure: No alcohol intake: current alcohol intake frequency: holidays/special occasions only substance use type: denies use current occupational status: employed Travel in the last 8 weeks?: None household members: family housing: house current occupation: self current occupational exposures/hazards: No caffeine: Yes Have you lived/traveled outside [place] in past 30 days?: No Contact w/someone who lives/traveled outside [place] past 30 days?: No Exposure to someone with infectious disease in past 14 days?: No Do you have a fever (greater than 100.4 F or 38 C)?: No Have you tested positive for COVID-19?: No Exposed to someone with COVID-19 in past 14 days?: No Do you have a sore throat?: No Do you have a cough?: No Do you have any weakness?: No Are you experiencing any nausea/vomitting?: No Do you have any diarrhea?: No Are you experiencing any unusual bleeding?: No Do you have any muscle aches/pain?: No Do you have any abdominal pain?: No Are you experiencing loss of taste or smell?: No [facility] Anesthesia Checklist Patient Identification Patient Identification: Arm Band Structural Data Admitted From: Home Planned Operative Procedure/s: Colonoscopy Consent for Planned Operative Procedure(s) Verified: Yes Verified Documents: Surgical Consent and History and Physical NPO Status Verified Time NPO: 06:00 (finished prep) Additional verifications Anesthesia Reactions: No Hx Blood Transfusions: No Blood Transfusion Reaction: No Airway Assessment Mallampati Score:: Class II C-Spine Mobility Assessed: Yes TMJ Mobility Assessed: Yes Dentition: Good Dentition Neurological Assessment Level of Consciousness: Awake, Alert and Appropriate Anesthesia Plan Anesthesia Risk discussed: Yes Anesthesia Plan: Verified ASA Class: III Anesthesia Type: MAC
[2025-03-25 08:57] VITALS: BP 128/76; PULSE 91; RESP 16; TEMP 36.4; O2SAT 97
[2025-03-25 09:07] VITALS: BP 131/59; PULSE 92; RESP 16; O2SAT 98
[2025-03-25 09:17] VITALS: BP 128/70; PULSE 88; RESP 16; O2SAT 98
[2025-03-25 09:27] VITALS: BP 148/87; PULSE 79; RESP 16; O2SAT 97
== END 2025-03-25 09:35 | disposition home or self-care (01) ==
PROVIDERS: PCP Internal Medicine Adolescent Medicine; Visit Provider Internal Medicine Gastroenterology
PROC: 0DJD8ZZ Inspection of Lower Intestinal Tract, Via Natural or Artificial Opening Endoscopic (ICD-10-PCS; CPT 45378; principal; 2025-03-25 09:00)
DX: D12.4 Benign neoplasm of descending colon (principal); D12.5 Benign neoplasm of sigmoid colon; K63.5 Polyp of colon; R14.0 Abdominal distension (gaseous); K58.2 Mixed irritable bowel syndrome; K64.2 Third degree hemorrhoids; R19.8 Other specified symptoms and signs involving the digestive system and abdomen; R73.03 Prediabetes; E78.5 Hyperlipidemia, unspecified; F17.290 Nicotine dependence, other tobacco product, uncomplicated; Z79.899 Other long term (current) drug therapy; Z79.82 Long term (current) use of aspirin; Z79.84 Long term (current) use of oral hypoglycemic drugs; Z88.1 Allergy status to other antibiotic agents; Z88.5 Allergy status to narcotic agent
CPT/HCPCS: 45385; J2003; J2704; J7120